=== PATIENT | male | born 1930 | race Caucasian/White ===

== ENCOUNTER 2016-12-14 23:10 | Emergency (ER) | payer MEDICARE ==
[2015-08-07 16:42] VITALS: BMI 24.4
[~2016-12-14 23:10] MED LIST: BAYER CHEWABLE81 MG PO; COUMADIN2.5 MG; COUMADIN5 MG; FLOMAX0.4 MG PO; GLIMEPIRIDE4 MG PO; HYDROCODON-ACE1 EAC7 PO; KLONOPIN0.5 MG PO; LEVEMIR100 U/M1 SC; LOPRESSOR25 MG; LOPRESSOR25 MG PO; PRAVACHOL40 MG PO; PROSCAR5 MG PO; RANEXA500 MG PO
[2016-12-15 00:45] LABS: BASOPHILS 0.3 % (0.0-2.0); HEMATOCRIT 41.4 % (42.0-54.0); HEMOGLOBIN 13.8 g/dL (13.5-17.5); IMMATURE GRANULOCYTES 0.2 % (0-5); LYMPHOCYTES 19.8 % (15-50); MCHC 33.3 g/dL (31.0-37.0); MCV 96.1 fL (80.0-100.0); MEAN PLATELET VOLUME 9.9 fL (7.4-10.4); MONOCYTES 7.7 % (2-11); PLATELET COUNT 136 10x3/uL (130-400); RBC 4.31 10x6/uL (4.20-6.10); RDW 13.1 % (11.5-14.5); WBC 9.8 10x3/uL (4.8-10.8)
[2016-12-15 00:59] LABS: APTT 34.3 SECONDS (22.8-39.4); INR 2.28 (0.85-1.17); PROTIME 25.2 SECONDS (11.6-15.0)
[2016-12-15 02:43] LABS: ALBUMIN 3.2 g/dL (3.4-5.0); ANION GAP 12.5 mmol/L (8-16); BILIRUBIN - TOTAL 1.05 mg/dL (0.2-1.3); CALCIUM 8.8 mg/dL (8.5-10.1); CARBON DIOXIDE 23.8 mmol/L (21.0-32.0); CREATININE - SERUM 1.2 mg/dL (0.6-1.3); POTASSIUM - SERUM 4.3 mmol/L (3.5-5.1); PROTEIN - SERUM 6.9 g/dL (6.4-8.2)
== END 2016-12-15 03:50 | disposition home or self-care (01) ==
LOC: D.ER 23:10
PROVIDERS: Family Medicine
DX: R53.1 Weakness (principal); R51 Headache; Z95.1 Presence of aortocoronary bypass graft; E11.9 Type 2 diabetes mellitus without complications; Z79.4 Long term (current) use of insulin; C64.9 Malignant neoplasm of unspecified kidney, except renal pelvis; I45.4 Nonspecific intraventricular block

== ENCOUNTER → 2016-12-18 13:28 | Outpatient (CLI) | payer MEDICARE ==
[2015-08-07 16:42] VITALS: BMI 24.4
== END | disposition home or self-care (01) ==
LOC: D.MRI 13:28
DX: R47.01 Aphasia (principal)

== ENCOUNTER 2018-02-06 09:47 | Emergency (ER) | payer MEDICARE ==
[2015-08-07 16:42] VITALS: BMI 24.4
[2018-02-06 10:24] LABS: BASOPHILS 0.2 % (0-2); EOSINOPHILS 1.7 % (0-7); HEMATOCRIT 37.6 % (42.0-54.0); HEMOGLOBIN 12.8 g/dL (13.5-17.5); IMMATURE GRANULOCYTES 0.3 % (0-5); LYMPHOCYTES 21.3 % (15-50); MCH 32.7 pg (26.0-34.0); MCV 96.2 fL (80.0-100.0); MEAN PLATELET VOLUME 9.8 fL (7.4-10.4); MONOCYTES 9.4 % (2-11); NEUTROPHILS 67.1 % (40-80); PLATELET COUNT 144 10x3/uL (130-400); RBC 3.91 10x6/uL (4.20-6.10); RDW 13.4 % (11.5-14.5); WBC 6.6 10x3/uL (4.8-10.8)
[2018-02-06 10:30] LABS: APTT 35.1 SECONDS (22.8-39.4); INR 2.63 (0.85-1.17); PROTIME 27.4 SECONDS (11.6-15.0)
[2018-02-06 10:34] LABS: ALKALINE PHOSPHATASE 64 U/L (46-116); ALT (SGPT) 14 U/L (10-68); BILIRUBIN - TOTAL 0.91 mg/dL (0.2-1.3); CALC OSMOLALITY 279 mosm/kg (275-300); CALCIUM 8.9 mg/dL (8.5-10.1); CARBON DIOXIDE 25.8 mmol/L (21.0-32.0); CHLORIDE - SERUM 101 mmol/L (98-107); CREATININE - SERUM 1.2 mg/dL (0.6-1.3); POTASSIUM - SERUM 4.8 mmol/L (3.5-5.1); PROTEIN - SERUM 6.9 g/dL (6.4-8.2); SODIUM 135 mmol/L (136-145); UREA NITROGEN 21 mg/dL (7-18); eGFR NON AFRICAN AMERICAN 61 mL/min (90-120)
[2018-02-06 10:35] LABS: GLUCOSE 226 mg/dL (74-106)
[2018-02-06 10:41] LABS: TROPONIN-I < 0.017 ng/mL (0.000-0.060)
== END 2018-02-06 14:51 | disposition home or self-care (01) ==
LOC: D.ER 09:47
PROVIDERS: Emergency Medicine
DX: G45.9 Transient cerebral ischemic attack, unspecified (principal); E11.65 Type 2 diabetes mellitus with hyperglycemia; I44.7 Left bundle-branch block, unspecified